=== PATIENT | female | born 1990 | race African-American/Black ===

== ENCOUNTER 2018-01-10 11:13 | Emergency (ER) | payer OTHER ==
[~2018-01-10] VITALS: Ht 154.9 cm; Wt 73.0 kg
[2018-01-10 11:43] VITALS: BP 109/65
== END 2018-01-10 14:15 | disposition home or self-care (01) ==
LOC: ER 13:18
DX: S80.862A Insect bite (nonvenomous), left lower leg, initial encounter (principal); S80.861A Insect bite (nonvenomous), right lower leg, initial encounter; S40.862A Insect bite (nonvenomous) of left upper arm, initial encounter; S40.861A Insect bite (nonvenomous) of right upper arm, initial encounter; W57.XXXA Bitten or stung by nonvenomous insect and other nonvenomous arthropods, initial encounter; Y93.89 Activity, other specified; Y92.89 Other specified places as the place of occurrence of the external cause; Y99.8 Other external cause status
CPT/HCPCS: 99282

== ENCOUNTER 2018-04-11 22:09 | Emergency (ER) | payer SELFPAY ==
[~2018-04-11] VITALS: Ht 154.9 cm; Wt 78.0 kg
[2018-04-12] MEDS ORDERED: SODIUM CHLORIDE 0.9% 1,000 ML IV ONE (02:08)
[2018-04-12 02:24] LABS: BASOPHILS % 1.3 % (0.0-2.0); EOSINOPHILS % 1.2 % (0.0-5.0); HEMATOCRIT. 37.7 % (36.0-48.0); HEMOGLOBIN. 12.6 g/dL (12.0-16.0); LYMPHOCYTES % 50.5 % (20.0-50.0); MEAN CORPUSCULAR HEMOGLOBIN 29.2 pg (28.0-32.0); MEAN CORPUSCULAR VOLUME 87.3 fL (81.0-99.0); MEAN PLATELET VOLUME 8.3 fl (7.4-10.4); MONOCYTES % 10.7 % (2.0-8.0); NEUTROPHILS % 36.3 % (40.0-76.0); PLATELET 170 x1000/uL (130-400); RED BLOOD CELL COUNT 4.32 mill/uL (4.2-5.4); RED CELL DISTRIBUTION WIDTH 13.9 % (11.6-14.6)
[2018-04-12 02:34] LABS: CHLORIDE 105 mEq/L (98-107)
[2018-04-12 06:48] VITALS: BP 109/67
== END 2018-04-12 06:51 | disposition home or self-care (01) ==
LOC: ER 23:18
DX: B33.8 Other specified viral diseases (principal); E03.9 Hypothyroidism, unspecified; R11.10 Vomiting, unspecified; F12.10 Cannabis abuse, uncomplicated; E04.9 Nontoxic goiter, unspecified
CPT/HCPCS: 36415; 71045; 80053; 81025; 85025; 87804; 96360; 99285; J7030

== ENCOUNTER 2018-05-27 10:53 | Emergency (ER) | payer SELFPAY ==
[~2018-05-27] VITALS: Ht 154.9 cm; Wt 77.0 kg
[2018-05-27] MEDS ORDERED: KETOROLAC 60MG/2ML VIAL IM STA (13:06)
[2018-05-27 14:18] LABS: CLARITY URINE CLOUDY (CLEAR); COLOR URINE YELLOW (YELLOW); KETONES URINE NEGATIVE (NEGATIVE); LEUKOCYTE ESTERASE URINE 3+ (NEGATIVE); NITRITE URINE POSITIVE (NEGATIVE); OCCULT BLOOD URINE 2+ (NEGATIVE); PH URINE 8.5 (4.5-8.0); PROTEIN URINE NEGATIVE (NEGATIVE); SPECIFIC GRAVITY URINE 1.013 (1.005-1.030); UROBILINOGEN URINE 0.2 E.U./dL (0.2-1.0)
[2018-05-27 15:17] LABS: CHLORIDE 104 mEq/L (98-107)
[2018-05-27 15:18] LABS: BASOPHILS % 0.3 % (0.0-2.0); EOSINOPHILS % 0.9 % (0.0-5.0); HEMATOCRIT. 36.2 % (36.0-48.0); HEMOGLOBIN. 12.1 g/dL (12.0-16.0); LYMPHOCYTES % 28.4 % (20.0-50.0); MEAN CORPUSCULAR HEMOGLOBIN 29.5 pg (28.0-32.0); MEAN CORPUSCULAR VOLUME 88.4 fL (81.0-99.0); MEAN PLATELET VOLUME 8.7 fl (7.4-10.4); MONOCYTES % 10.4 % (2.0-8.0); PLATELET 169 x1000/uL (130-400); RED CELL DISTRIBUTION WIDTH 13.9 % (11.6-14.6)
[2018-05-27 15:28] LABS: HCG SCREEN NEGATIVE
[2018-05-27 15:32] VITALS: BP 110/71
== END 2018-05-27 15:40 | disposition home or self-care (01) ==
LOC: ER 10:53
DX: N39.0 Urinary tract infection, site not specified (principal); E03.9 Hypothyroidism, unspecified; F12.10 Cannabis abuse, uncomplicated
CPT/HCPCS: 36415; 80053; 81003; 81025; 83690; 84703; 85025; 87077; 87086; 87186; 96372; 99283; J1885

== ENCOUNTER 2020-03-15 11:14 | Emergency (ER) | payer OTHER ==
[~2020-03-15] VITALS: Ht 154.9 cm; Wt 73.0 kg
[2020-03-15 12:35] VITALS: BP 118/61
== END 2020-03-15 12:38 | disposition home or self-care (01) ==
LOC: ER 11:14
DX: H10.9 Unspecified conjunctivitis (principal); E03.9 Hypothyroidism, unspecified; F12.10 Cannabis abuse, uncomplicated; Z87.440 Personal history of urinary (tract) infections; Z90.89 Acquired absence of other organs
CPT/HCPCS: 99281; 99283

== ENCOUNTER 2020-04-22 11:08 | Emergency (ER) | payer OTHER ==
[~2020-04-22] VITALS: Ht 154.9 cm; Wt 73.0 kg
[2020-04-22] MEDS ORDERED: IBUPROFEN 600MG TABLET PO STA (12:08)
[2020-04-22 12:24] LABS: BASOPHILS % 1.4 % (0.0-2.0); EOSINOPHILS % 1.6 % (0.0-5.0); HEMATOCRIT. 39.9 % (36.0-48.0); HEMOGLOBIN. 13.2 g/dL (12.0-16.0); LYMPHOCYTES % 41.7 % (20.0-50.0); MEAN CORPUSCULAR HEMOGLOBIN 28.3 pg (28.0-32.0); MEAN CORPUSCULAR VOLUME 85.8 fL (81.0-99.0); MEAN PLATELET VOLUME 8.1 fl (7.4-10.4); MONOCYTES % 11.3 % (2.0-8.0); PLATELET 178 x1000/uL (130-400); RED BLOOD CELL COUNT 4.65 mill/uL (4.2-5.4); RED CELL DISTRIBUTION WIDTH 15.5 % (11.6-14.6)
[2020-04-22 12:28] LABS: CLARITY URINE CLOUDY (CLEAR); COLOR URINE DARK YELLOW (YELLOW); KETONES URINE NEGATIVE (NEGATIVE); LEUKOCYTE ESTERASE URINE NEGATIVE (NEGATIVE); NITRITE URINE NEGATIVE (NEGATIVE); OCCULT BLOOD URINE NEGATIVE (NEGATIVE); PH URINE 5.5 (4.5-8.0); PROTEIN URINE TRACE (NEGATIVE); SPECIFIC GRAVITY URINE 1.033 (1.005-1.030)
[2020-04-22 12:30] LABS: CHLORIDE 105 mEq/L (98-107)
[2020-04-22 13:30] VITALS: BP 106/86
== END 2020-04-22 13:50 | disposition home or self-care (01) ==
LOC: ER 11:08
DX: R10.32 Left lower quadrant pain (principal); N39.0 Urinary tract infection, site not specified; Z98.890 Other specified postprocedural states
CPT/HCPCS: 36415; 76830; 76856; 80053; 81003; 81025; 85025; 93005; 99285

== ENCOUNTER 2020-06-08 09:32 | Emergency (ER) | payer OTHER ==
[~2020-06-08] VITALS: Ht 154.9 cm; Wt 73.0 kg
[2020-06-08 11:37] LABS: CLARITY URINE CLOUDY (CLEAR); COLOR URINE DARK YELLOW (YELLOW); KETONES URINE TRACE (NEGATIVE); LEUKOCYTE ESTERASE URINE NEGATIVE (NEGATIVE); NITRITE URINE NEGATIVE (NEGATIVE); OCCULT BLOOD URINE NEGATIVE (NEGATIVE); PH URINE 5.5 (4.5-8.0); PROTEIN URINE TRACE (NEGATIVE); SPECIFIC GRAVITY URINE 1.038 (1.005-1.030)
[2020-06-08 13:20] VITALS: BP 110/74
== END 2020-06-08 13:21 | disposition home or self-care (01) ==
LOC: ER 09:32
DX: N39.0 Urinary tract infection, site not specified (principal)
CPT/HCPCS: 81003; 99283

== ENCOUNTER 2020-09-26 10:42 | Emergency (ER) | payer OTHER ==
[~2020-09-26] VITALS: Ht 154.9 cm; Wt 72.0 kg
[2020-09-26 11:49] LABS: CLARITY URINE CLEAR (CLEAR); COLOR URINE YELLOW (YELLOW); KETONES URINE NEGATIVE (NEGATIVE); LEUKOCYTE ESTERASE URINE NEGATIVE (NEGATIVE); NITRITE URINE NEGATIVE (NEGATIVE); OCCULT BLOOD URINE NEGATIVE (NEGATIVE); PROTEIN URINE NEGATIVE (NEGATIVE); UROBILINOGEN URINE 0.2 E.U./dL (0.2-1.0)
[2020-09-26 12:03] LABS: BASOPHILS % 1.1 % (0.0-2.0); EOSINOPHILS % 0.9 % (0.0-5.0); HEMATOCRIT. 34.7 % (36.0-48.0); HEMOGLOBIN. 11.7 g/dL (12.0-16.0); LYMPHOCYTES % 36.6 % (20.0-50.0); MEAN CORPUSCULAR HEMOGLOBIN 30.3 pg (28.0-32.0); MEAN CORPUSCULAR VOLUME 89.9 fL (81.0-99.0); MEAN PLATELET VOLUME 7.9 fl (7.4-10.4); MONOCYTES % 13.7 % (2.0-8.0); NEUTROPHILS % 47.7 % (40.0-76.0); PLATELET 191 x1000/uL (130-400); RED BLOOD CELL COUNT 3.86 mill/uL (4.2-5.4); RED CELL DISTRIBUTION WIDTH 14.7 % (11.6-14.6)
[2020-09-26 12:09] LABS: CHLORIDE 105 mEq/L (98-107)
[2020-09-26 12:11] LABS: HCG SCREEN POSITIVE; PROTHROMBIN TIME 11.2 sec (9.6-11.0)
[2020-09-26] MEDS ORDERED: PNV1TABL50 PO (13:30)
[2020-09-26 13:48] VITALS: BP 105/69
== END 2020-09-26 13:49 | disposition home or self-care (01) ==
LOC: ER 10:42
DX: O20.0 Threatened abortion (principal); O99.011 Anemia complicating pregnancy, first trimester; Z3A.00 Weeks of gestation of pregnancy not specified; O34.80 Maternal care for other abnormalities of pelvic organs, unspecified trimester; N83.202 Unspecified ovarian cyst, left side
CPT/HCPCS: 36415; 76801; 80053; 81003; 81025; 84702; 84703; 85025; 93005; 99285

== ENCOUNTER 2020-10-05 12:07 | Emergency (ER) | payer OTHER ==
[~2020-10-05] VITALS: Ht 154.9 cm; Wt 68.0 kg
[~2020-10-05 12:07] MED LIST: PNV1TABL50 PO
[2020-10-05] MEDS ORDERED: ACETAMINOPHEN 325MG TABLET PO PRN (12:30)
[2020-10-05 12:44] LABS: CLARITY URINE CLOUDY (CLEAR); COLOR URINE YELLOW (YELLOW); KETONES URINE TRACE (NEGATIVE); LEUKOCYTE ESTERASE URINE TRACE (NEGATIVE); NITRITE URINE NEGATIVE (NEGATIVE); OCCULT BLOOD URINE NEGATIVE (NEGATIVE); PROTEIN URINE NEGATIVE (NEGATIVE); SPECIFIC GRAVITY URINE 1.025 (1.005-1.030); UROBILINOGEN URINE 0.2 E.U./dL (0.2-1.0)
[2020-10-05 12:59] LABS: EOSINOPHILS % 1.4 % (0.0-5.0); HEMATOCRIT. 34.5 % (36.0-48.0); HEMOGLOBIN. 11.7 g/dL (12.0-16.0); LYMPHOCYTES % 29.1 % (20.0-50.0); MEAN CORPUSCULAR HEMOGLOBIN 30.6 pg (28.0-32.0); MEAN CORPUSCULAR VOLUME 90.1 fL (81.0-99.0); MEAN PLATELET VOLUME 8.2 fl (7.4-10.4); MONOCYTES % 13.6 % (2.0-8.0); NEUTROPHILS % 54.9 % (40.0-76.0); PLATELET 183 x1000/uL (130-400); RED BLOOD CELL COUNT 3.83 mill/uL (4.2-5.4); RED CELL DISTRIBUTION WIDTH 14.2 % (11.6-14.6)
[2020-10-05 13:05] LABS: CHLORIDE 105 mEq/L (98-107)
[2020-10-05 13:57] LABS: B-HCG QUANTITATIVE 18095 mIU/mL (<3)
[2020-10-05 15:30] VITALS: BP 122/72
== END 2020-10-05 16:00 | disposition home or self-care (01) ==
LOC: ER 12:07
DX: O26.891 Other specified pregnancy related conditions, first trimester (principal); R10.0 Acute abdomen; O99.011 Anemia complicating pregnancy, first trimester; D72.819 Decreased white blood cell count, unspecified; Z3A.01 Less than 8 weeks gestation of pregnancy
CPT/HCPCS: 36415; 76801; 80053; 81003; 84702; 85025; 93005; 99285

== ENCOUNTER 2021-03-08 15:58 | Observation (INO) | payer OTHER ==
[~2021-03-08] VITALS: Ht 154.9 cm; Wt 78.5 kg
[2021-03-08] MEDS ORDERED: LEVO200T8 PO (16:21)
[2021-03-08] MEDS ORDERED: PREN-55 MT (16:21)
[2021-03-08 16:47] LABS: CLARITY URINE CLOUDY (CLEAR); COLOR URINE YELLOW (YELLOW); KETONES URINE NEGATIVE (NEGATIVE); LEUKOCYTE ESTERASE URINE 1+ (NEGATIVE); NITRITE URINE NEGATIVE (NEGATIVE); OCCULT BLOOD URINE NEGATIVE (NEGATIVE); PROTEIN URINE NEGATIVE (NEGATIVE); SPECIFIC GRAVITY URINE 1.016 (1.005-1.030); UROBILINOGEN URINE 0.2 E.U./dL (0.2-1.0)
[2021-03-08] MEDS ORDERED: LACTATED RINGERS 1,000 ML IV SCH (17:30)
[2021-03-08] MEDS ORDERED: CEFAZOLIN 2,000 MG in DEXT 5% WATER 100 ML IV NR (18:30)
== END 2021-03-08 18:50 | disposition home or self-care (01) ==
LOC: 8 EST LDRP 15:58
PROVIDERS: ADMIT Obstetrics & Gynecology; ATTEND Obstetrics & Gynecology
DX: O99.891 Other specified diseases and conditions complicating pregnancy (principal); M54.9 Dorsalgia, unspecified; O26.893 Other specified pregnancy related conditions, third trimester; R10.9 Unspecified abdominal pain; Z3A.28 28 weeks gestation of pregnancy
CPT/HCPCS: 59025; 76805; 76818; 81003; 96365; G0378; J0690; J7060; 96360; 99281; J7120; G0379